=== PATIENT | male | born 1970 | race Caucasian/White ===

== ENCOUNTER 2024-08-13 06:42 | Day surgery (SDC) | payer OTHER ==
[2024-07-30 11:59] VITALS: BMI 34.0
[2024-08-13 08:13] VITALS: TEMP 98
[2024-08-13 08:27] VITALS: RESP 18
[2024-08-13 09:13] VITALS: BP 117/90; PULSE 57
== END 2024-08-13 09:05 | disposition home or self-care (01) ==
LOC: JASU-ENDO 06:42
PROVIDERS: ATTEND Internal Medicine Gastroenterology
PROC: 0DBH8ZX Excision of Cecum, Via Natural or Artificial Opening Endoscopic, Diagnostic (ICD-10-PCS; principal; 2024-08-13 08:00)
DX: Z12.11 Encounter for screening for malignant neoplasm of colon (principal); D12.5 Benign neoplasm of sigmoid colon; K57.30 Diverticulosis of large intestine without perforation or abscess without bleeding; K64.8 Other hemorrhoids
CPT/HCPCS: 88305-TC